=== PATIENT | male | born 1970 | race Caucasian/White ===

== ENCOUNTER 2017-06-17 11:30 | Emergency (ER) | payer BC, MEDICAID ==
[~2017-06-17] VITALS: Ht 167.6 cm; Wt 86.5 kg
[2017-06-17 11:35] VITALS: Ht 167.6 cm; Wt 86.5 kg
--- NOTE | 2017-06-17 17:34 | ERD ---
ER Documentation Chief Complaint Date/Time DATE: 06/17/17 TIME: 17:23 Chief Complaint right lower arm and 3rd, 4th & 5th finger numb x1 wk HPI 47-year-old male complaining of right forearm and right fourth and fifth finger numbness 1 week. Patient is right-hand dominant, works as a auto bench mechanic. He also does weight lifting. Denies injuries. Denies weakness in the right upper extremity. Denies prolonged right arm flexion. Denies any previous medical history. His fevers or chills. ROS All systems reviewed and are negative except as per history of present illness. Medications Home Meds No Active Prescriptions or Reported Meds Allergies Allergies: Coded Allergies: No Known Allergy (Unverified , 09/07/13) PMhx/Soc Medical and Surgical Hx: pt denies Medical Hx, pt denies Surgical Hx Hx Alcohol Use: Yes (occ) Hx Substance Use: No Hx Tobacco Use: No Smoking Status: Never smoker Physical Exam Vitals Vital Signs Date Time Temp Pulse Resp B/P Pulse Ox O2 Delivery O2 Flow Rate FiO2 06/17/17 11:35 97.8 58 20 151/78 99 Physical Exam General: Well-developed, well-nourished, conscious and coherent, in no distress. Patient is noted to have a habitus of constantly flexing and extending the fingers of his right hand. Skin: Warm and dry without rash, good texture and turgor Head: Normocephalic without evidence of trauma Eyes: Sclera and conjunctivae normal; pupils equal, round, and reactive to light; extraocular movements are intact Neck: Supple without meningismus or adenopathy. Carotids are equal. Trachea midline. No bruits or JVD Chest: Normal AP diameter. Good expansion without retractions. Nontender. Lungs are clear to auscultate bilaterally with good tidal volume Heart: Regular rate and rhythm. No murmur, rub, or gallops heard Extremities: Full range of motion. Good strength bilaterally. No clubbing, cyanosis, or edema. Peripheral pulses are intact. Decreased sensation on the ulnar aspect of the right forearm, right fourth and fifth finger both the ventral and dorsal aspect, and right hypo-thenar region. Neuro: Alert and oriented 4, GCS 15. Cranial nerves grossly intact. Motor and sensory exams nonfocal. Moves all extremities. Speech clear. Gait normal Procedures/MDM 47-year-old male present ED with right upper extremity numbness 1 week. Patient's exam findings are consistent with ulnar nerve neuropathy. It is not know the cause of patient's ulnar nerve neuropathy at this time. It is possible the patient's habitus of flexing and extending the fingers of his right hand may have contributed to it. He is advised to refrain from weightlifting for the time being, and wrapped a towel to his right arm at bedtime to prevent the arm from flexing while he is sleeping. He is also advised to follow-up with a PCP for neurology referral. Patient appears well, stable for discharge and outpatient management. Medical decision making shared with patient and family. Education provided to patient and family. Patient and family expressed understanding of the plan. Medications on discharge: None. Follow-up: Primary care provider in 2-3 days or return to ED if worse. Disclaimer: Inadvertent spelling and grammatical errors are likely due to EHR/ dictation software use and do not reflect on the overall quality of patient care. Also, please note that the electronic time recorded on this note does not necessarily reflect the actual time of the patient encounter. Departure Diagnosis: Primary Impression: Neuropathy, ulnar nerve Condition: Stable Patient Instructions: Ulnar Nerve Palsy [facility] Usted se lozano hecho un examen mdico de control que le indica que no est en esha condicin que requiera tratamiento urgente en el Departamento de Emergencia. Un estudio ms profundo y el tratamiento de reynolds condicin pueden esperar sin ningn riesgo hasta que usted sea atendida/o en el consultorio de reynolds mdico o esha cl jocelyn. Es responsabilidad suya arreglar esha jose para el seguimiento del vipin. MANEJO DE CONDICIONES NO URGENTES EN EL FUTURO 1) Si usted tiene un mdico de atencin primaria: Usted debera llamar a reynolds mdico de atencin primaria antes de venir al departamento de emergencia. Despus de las horas de consultorio, reynolds doctor o reynolds asociado/a est disponible por telfono. El mdico o enfermero de vignesh en el servicio telefnico puede asesorarle por oneil medio para atender el problema, o vipin contrario se puede programar esha jose. 2) Si usted no tiene un mdico de atencin primaria: Llame al mdico o clnica de referencia que aparece abajo demetrius las horas de consultorio para hacer esha jose para que le vean. CLINICAS: [place] [phone] [facility] [phone] [facility] [phone] [place] [phone] [place] [phone] [facility] [phone] [address] Additional Instructions: Llame al doctor MAANA y lorin esha JOSE PARA DENTRO DE 2-3 PERALTA.Dgale a la secretaria que nosotros le instruimos hacer esta jose.Avise o llame si reynolds condicin se empeora antes de la jose. Regresa aqui si peor o no mejor. KARY ALFREDO NP Jun 17, 2017 17:34
== END 2017-06-17 13:08 | disposition home or self-care (01) ==
LOC: FTE 11:30
DX: G56.21 Lesion of ulnar nerve, right upper limb (principal)
CPT/HCPCS: 99282

== ENCOUNTER 2018-06-15 17:25 | Emergency (ER) | END 2018-06-15 20:17 | disposition home or self-care (01) ==

== ENCOUNTER 2018-06-17 07:39 | Emergency (ER) | END 2018-06-17 09:34 | disposition home or self-care (01) ==

== ENCOUNTER 2018-09-13 11:37 | Emergency (ER) | END 2018-09-13 13:08 | disposition home or self-care (01) ==

== ENCOUNTER 2019-01-19 13:49 | Emergency (ER) | payer MEDICAID ==
[~2019-01-19] VITALS: Wt 78.0 kg
[~2019-01-19 13:49] MED LIST: AMOX1TAB10 PO; BENZ1LOZ52 MM; IBUP-1542 PO; ONDA8TAB14 PO
[2019-01-19 14:01] VITALS: BP 134/74; PULSE 74; RESP 18
--- NOTE | 2019-01-19 15:00 | ERD ---
ER Documentation Chief Complaint Chief Complaint HAD 80 LLB HEAVY OBJECT FELL ON CHEST, LAST SUNDAY, WHILE WORKING OUT HPI 48-year-old male, previously healthy, presents the emergency department, complaining of left chest wall pain after sustaining a blunt trauma while lifting weights 1 week ago. The pain is dull, constant, 4/10, worsened by deep palpation and inspiration. The patient denies shortness of breath, no palpitations. ROS All systems reviewed and are negative except as per history of present illness. Medications Home Meds Active Scripts Ibuprofen* (Motrin*) 400 Mg Tab, 400 MG PO Q6H PRN for PAIN AND OR ELEVATED TEMP, #15 TAB Prov:BROOK MARIN MD 01/19/19 Ondansetron (Ondansetron Odt) 8 Mg Tab.rapdis, 8 MG PO Q6H PRN for NAUSEA AND/OR VOMITING, #30 TAB Prov:KELLY TRIPP PA-C 09/13/18 Benzocaine/Menthol* (Cepacol* Sore Throat Lozenges) 1 Each Lozenge, 1 EACH MM q2h PRN for SORE THROAT, #14 LOZENGE Prov:KELLY TRIPP PA-C 06/17/18 Ibuprofen* (Motrin*) 600 Mg Tab, 600 MG PO Q8, #12 TAB Prov:BROOK MARIN MD 06/15/18 Amoxicillin/Potassium Clav (Amox-Clav 875-125 mg Tablet) 875-125 mg Tab, 1 TAB PO BID for 7 Days, #14 TAB Prov:BROOK MARIN MD 06/15/18 Allergies Allergies: Coded Allergies: No Known Allergy (Unverified , 09/13/18) PMhx/Soc Hx Neurological Disorder: No Hx Respiratory Disorders: No Hx Cardiac Disorders: No Hx Psychiatric Problems: No Hx Miscellaneous Medical Probl: No Hx Alcohol Use: Yes (occ) Hx Substance Use: No Hx Tobacco Use: No FmHx Family History: No diabetes, No coronary disease Physical Exam Vitals Vital Signs Date Temp Pulse Resp B/P (MAP) Pulse Ox O2 O2 Flow FiO2 Time Delivery Rate 01/19/19 98.1 74 18 134/74 99 14:01 (94) Physical Exam Const: No acute distress Head: Atraumatic Eyes: Normal Conjunctiva ENT: Normal External Ears, Nose and Mouth. Neck: Full range of motion. No meningismus. Resp: Clear to auscultation bilaterally. Tenderness to palpation over the left anterior chest wall area, no deformity, no crepitus, no ecchymosis. Cardio: Regular rate and rhythm, no murmurs Abd: Soft, non tender, non distended. Normal bowel sounds Skin: No petechiae or rashes Back: No midline or flank tenderness Ext: No cyanosis, or edema Neur: Awake and alert Psych: Normal Mood and Affect Results 24 hrs Patient: RAHEL ALLEN : 1970 Age: 48 Sex: M MR #: [id number] DOS: 01/19/19 1503 Ordering MD: BROOK MARIN MD Location: [facility] Room/Bed: PROCEDURE: XR Ribs. CLINICAL INDICATION: Left-sided chest pain, trauma TECHNIQUE: Multiple oblique views of the left ribs were obtained. The images were reviewed on a PACS workstation. COMPARISON: None. FINDINGS: There is no evidence of acute fracture. The visualized left lung is clear. Soft tissues appear grossly unremarkable. IMPRESSION: 1. No radiographic evidence of acute osseous abnormality. Procedures/MDM Differential diagnosis include but not limited to: Soft tissue contusion, sprain/strain, muscle spasm, fracture. Neurovascular exam grossly intact. no clinical findings suggestive of fracture, no acute deformity, no edema, no rashes. Physical examination and clinical presentation consistent most likely with contusion of the chest wall. During the ED course the patient remained stable, without complaints. Results and clinical impression discussed with patient who agrees with management. The patient is stable to be treated outpatient and will be discharged home with recommendations and close monitoring The patient was instructed to follow up with the primary care provider in the next 48h. If symptoms persist, worsen or new symptoms develop, then patient should return to the ED immediately. Instructions explained and given to patient with acknowledgment and demonstrated understanding. Disclaimer: Inadvertent spelling and grammatical errors are likely due to EHR/dictation software use and do not reflect on the overall quality of patient care. Also, please note that the electronic time recorded on this note does not necessarily reflect the actual time of the patient encounter. Departure Diagnosis: Primary Impression: Contusion of left chest wall Condition: Stable Additional Instructions: Muchas latricia por [facility] para reynolds servicio. Esperamos que en reynolds visita a la abigail de emergencia reynolds problema medico haya sido solucionado y que se sienta mucho mejor. Para estar seguros que reynolds mejoria sigue en proceso, le pedimos el favor de hacer esha betty de seguimiento medico con reynolds doctor primario en los proximos 2-4 jefferson. Lleve con usted estos documentos y las medicinas recetadas. Si tammy sintomas empeoran, NO SE ESPERE, por favor regrese a abigail de emergencia INMEDIATAMENTE. En vipin que usted no tenga un mdico de atencin primaria: Llame al mdico o clnica comunitaria de referencia que aparece abajo demetrius las horas de consultorio para hacer esha betty para que le vean. CLINICAS: [facility] [phone] [facility] [phone] [facility]. [facility] [phone] [facility]. [facility] [phone] [facility] [place] [phone] [facility]. [phone] MD January 19, 2019 15:00
[2019-01-19] MEDS ORDERED: IBUP-1561 PO (16:49)
== END 2019-01-19 16:59 | disposition home or self-care (01) ==
LOC: FTE 13:49
DX: S20.212A Contusion of left front wall of thorax, initial encounter (principal); W20.8XXA Other cause of strike by thrown, projected or falling object, initial encounter; Y92.89 Other specified places as the place of occurrence of the external cause
CPT/HCPCS: 71100; 93005; Z7502